=== PATIENT | male | born 1935 | race Caucasian/White ===

== ENCOUNTER 2016-09-29 08:25 | Outpatient (CLI) | payer MEDICARE, OTHER | END 2016-09-29 08:26 | disposition home or self-care (01) | DX: I49.9 Cardiac arrhythmia, unspecified (principal); R53.83 Other fatigue; E78.5 Hyperlipidemia, unspecified; E55.9 Vitamin D deficiency, unspecified ==

== ENCOUNTER 2016-10-05 09:01 | Outpatient (CLI) | payer MEDICARE, OTHER | END 2016-10-05 09:02 | disposition home or self-care (01) | DX: I49.9 Cardiac arrhythmia, unspecified (principal) ==

== ENCOUNTER 2016-11-09 15:42 | Outpatient (CLI) | payer MEDICARE, OTHER | END 2016-11-09 15:43 | disposition home or self-care (01) | DX: R10.11 Right upper quadrant pain (principal); R11.10 Vomiting, unspecified ==

== ENCOUNTER 2016-11-11 10:13 | Outpatient (CLI) | payer MEDICARE, OTHER | END 2016-11-11 10:14 | disposition home or self-care (01) | DX: K80.80 Other cholelithiasis without obstruction (principal); R11.10 Vomiting, unspecified ==